=== PATIENT | female | born 1995 | race Caucasian/White ===

== ENCOUNTER 2024-06-11 07:12 | Day surgery (SDC) | payer BC, SELFPAY ==
[2024-06-11] VITALS (14 sets, daily range): BP systolic 105–134; BP diastolic 69–97; PULSE 66–101; RESP 16–20; TEMP 36.1–37.2; O2SAT 94–100; BMI 36.0
[2024-06-11 07:46] LABS: Ur HCG Qualitative* Negative (Negative)
[2024-06-11] MEDS: SODIUM CHLORIDE 0.9 % (FLUSH) 10 ML SYRINGE IVF ×2 (08:25→10:14)
--- NOTE | 2024-06-11 08:30 | CRLHL7_ITS ---
For Patients: As a result of the Cures Act, medical imaging exams and procedure reports are released immediately into your electronic medical record. You may view this report before your referring provider. If you have questions, please contact your health care provider. Indication: Left Ankle Stabilization, intra op Technique: Two fluoroscopic images of the left ankle. Fluoroscopic time 19 seconds. IMPRESSION: Normal alignment of the mortise. No fracture. Dictated by Bijan Orourke MD @ 06/11/2024 12:45:46 PM (Electronically Signed)
--- NOTE | 2024-06-11 09:43 | W.ANESCHARGE ---
Anesthesia Charges Start Date/Time Anesthesia Start Date: 06/11/24 Anesthesia Start Time: 10:09 Stop Date/Time Anesthesia Stop Date: 06/11/24 Anesthesia Stop Time: 12:27
--- NOTE | 2024-06-11 09:43 | W.PM.NB ---
Nerve Block Nerve Block Time Seen by Provider: 10:05 Date Seen: 06/11/24 Type of block requested by surgeon for post-operative analgesia: popliteal Side: left Time out performed: Yes Verification of patient name: Yes Verification of date of : Yes Site marking: site marked Name of person performing procedure: Adriano Continuous monitoring Was continuous monitoring of O2 sat, B/P, emergency medicine physician, recorded every 15 minutes?: Yes Procedure Checklist: sterile prep, needles and gloves Ultrasound guided. Images saved: Yes Medications given in 5ml increments after negative aspiration: Marcaine %: 0.5 mL: 20 Needle gauge: 22 Patient tolerated procedure well: Yes Additional comments: Needle noted adjacent to nerve Block Charges Block Charge (with Pro Fee): Sciatic Nerve Use of Ultrasound Machine for Block: Yes- US Guidance/pain block
[2024-06-11] MEDS: MIDAZOLAM HCL 1 MG/ML inj IVP (10:00)
[2024-06-11] MEDS: fentaNYL 100 MCG/2 ML inj IVP (10:00)
[2024-06-11] MEDS: 0.9 % SODIUM CHLORIDE 500 ML 500 ML 100 ML IV (10:00)
--- NOTE | 2024-06-11 10:13 | SUR.PREOP ---
TIME?OUT:?1000 PT/RN/MDA?VERIFICATION?OF?SURGICAL?SITE,?PROCEDURE,?AND?CONSENT OBTAINED?PRIOR?TO?INVASIVE?PROCEDURE.
[2024-06-11] MEDS: CEFAZOLIN 2 GM INJ IVP (10:26)
--- NOTE | 2024-06-11 12:47 | W.ANESCHARGE ---
Anesthesia Charges Start Date/Time Anesthesia Start Date: 06/11/24 Anesthesia Start Time: 10:09 Stop Date/Time Anesthesia Stop Date: 06/11/24 Anesthesia Stop Time: 12:27
--- NOTE | 2024-06-11 14:00 | SUR.PHASEII ---
Patient verbalized readiness to be discharged and understanding of discharge instructions. Patient tolerated apple juice and water.
--- NOTE | 2024-06-11 16:41 | W.PODPROC_ITS ---
Date of Procedure: 06/11/24 Surgeon: James Villasenor DPM Pre-op Diagnosis: 1. Ankle instability left 2. Loose body left ankle Post-op Diagnosis: 1. Ankle instability left 2. Loose body left ankle Type of Procedure: 1. Lateral Ankle stabilization left 2. Excision of loose body left ankle Indications: Patient sustained multiple inversion type injuries has had ongoing pain. She has a loose body within the lateral ankle joint. She has positive stress views for unstable lateral ankle is with talar tilt and anterior drawer. She has failed physical therapy and bracing. She would like to proceed with surgical intervention. Reviewed the procedure, recovery, expectation potential complications. These include but not limited to: Poor wound healing, infection, continued pain, potential need for future surgery, deep venous thrombosis, pulmonary embolism, complex regional pain syndrome, possible . She understands risks and written consent was obtained and site marked. All questions answered. Procedure Description: Patient brought the operating room placed supine position on operating table. She was placed under general anesthesia. She had a preoperative popliteal block by Anesthesia. She was prepped and draped in sterile fashion. Standard time- out protocol followed. Left limb was exsanguinated and the thigh tourniquet inflated 250 mm Hg. Linear incision was made over the distal tip of the fibula coursing toward the 4th metatarsal base. The incision was carried down through skin subcutaneous tissues. Transverse incision was then made through the joint capsule an ankle ligaments following the distal fibula. Ligaments were reflected off the distal fibula as was the periosteum. The distal fibula was then roughened with a rongeur. The loose body was identified and excised. 4.75 mm SwiveLock anchor was placed the distal fibula with 2 strands of FiberTape. A FiberTak anchor was then placed more inferior to the SwiveLock anchor and a 2nd FiberTak anchor was placed superior to the SwiveLock anchor. Carefully reflecte d soft tissues away from the lateral wall the calcaneus just below the posterior facet. Drill holes made and tapped for 4.75 anchor. The ankle was held in a dorsiflexed and everted position and 1 arm of the FiberTape was placed through a 4.75 mm anchor eyelet and this was then inserted into the calcaneus under tension. Once placed the talar tilt was now stabilized. Next the inferior FiberTak was passed through the calcaneal fibular ligament stump as well as through deep fascia. The FiberWire from the SwiveLock in the fibula was then passed through the anterior talar fib ligament capsule and deep fascia. The superior FiberTak suture was placed through the ATFL joint capsule and the fascia. With the foot remaining dorsiflexed and everted all 3 sutures were then tensioned. The FiberTak sutures were knotless. At this point stress of the ankle showed a stable ankle with anterior drawer and talar tilt. Drill guide was then placed in the sinus tarsi and drill hole placed in the talar shoulder into the body. Drill hole was tapped. FiberTape was then passed under the fascia and then anchored into the talus with a 3.5 mm SwiveLock anchor. This was done so that there was some laxity over the fascia. All suture ends were then cut. Periosteum was then brought over the top of the other pair was sutured to the deep fascia with 2-0 Vicryl. Wound was thoroughly irrigated normal sterile saline. Subcutaneous tissues reapproximated with 4-0 Vicryl and skin closed with 4-0 Prolene. Sterile dressing was applied. Tourniquet was released and normal capillary fill time returned all digits. She was splinted in a dorsiflexed and everted position. She was transferred from OR to PACU vital signs stable and vascular status intact to the left foot. She will be discharged per same-day surgery protocol. She is given oxycodone for pain. She is nonweightbearing. She will follow up clinic in 2 days. Complications: None apparent Anesthesia: GETA and regional (Popliteal block per Anesthesia) Hemostasis: thigh Estimated blood loss (mL): 2 Implants: Ar[employer]rex FiberTak anchor x2, Arthrex internal brace kit with additional 4.75 mm SwiveLock Specimens: none sent Disposition: PACU
== END 2024-06-11 13:59 | disposition home or self-care (01) ==
PROVIDERS: Anesthesiology; PCP Family Medicine; Visit Provider Podiatrist
PROC: (CPT 27870; principal; 2024-06-11 08:30)
DX: M25.372 Other instability, left ankle (principal); M24.072 Loose body in left ankle; G89.18 Other acute postprocedural pain
CPT/HCPCS: 27870; 01470; 01480; 64445; 73600; 76000; 76942; 81025; A4580; C1713; J0330; J0665; J0690; J2250; J2704; J3010; J7030